=== PATIENT | male | born 1995 | race Caucasian/White ===

== ENCOUNTER 2019-06-21 17:12 | Emergency (ER) | payer OTHER ==
[~2019-06-21] VITALS: Ht 175.3 cm; Wt 94.5 kg
[~2019-06-21 17:12] MED LIST: CPRHC10OT OTIC; IBUP-1542 PO
[2019-06-21 17:44] VITALS: BP 119/66; PULSE 69; RESP 18; Ht 175.3 cm; Wt 94.5 kg
== END 2019-06-22 19:57 | disposition home or self-care (01) ==
LOC: E/R 17:12
DX: M25.532 Pain in left wrist (principal); Z87.81 Personal history of (healed) traumatic fracture
CPT/HCPCS: 73110; Z7502